=== PATIENT | male | born 1950 | race Caucasian/White ===

== ENCOUNTER 2025-08-03 08:55 | Day surgery (SDC) | payer OTHER ==
[2025-07-30 14:49] VITALS: BMI 23.3
[2025-08-03 11:05] VITALS: TEMP 97.4
[2025-08-03 11:38] VITALS: BP 133/71; PULSE 78; RESP 18
== END 2025-08-03 11:35 | disposition home or self-care (01) ==
LOC: FASU-ENDO 08:55
PROVIDERS: ATTEND Internal Medicine Gastroenterology
PROC: 0DJD8ZZ Inspection of Lower Intestinal Tract, Via Natural or Artificial Opening Endoscopic (ICD-10-PCS; 2025-08-03)
PROC: 0D5M8ZZ Destruction of Descending Colon, Via Natural or Artificial Opening Endoscopic (ICD-10-PCS; principal; 2025-08-03 10:37)
DX: Z12.11 Encounter for screening for malignant neoplasm of colon (principal); Z86.0100 Personal history of colon polyps, unspecified; K55.20 Angiodysplasia of colon without hemorrhage; D12.4 Benign neoplasm of descending colon
CPT/HCPCS: 88305-TC